=== PATIENT | male | born 1945 | race Hispanic/Latino ===

== ENCOUNTER 2017-11-27 18:28 | Emergency (ER) | payer MEDICARE ==
[~2017-11-27] VITALS: Ht 172.7 cm; Wt 110.7 kg
[~2017-11-27 18:28] MED LIST: ASPIR 8181 MG PO; BUPROPION XL150 MG PO; ESCITALOPRAM OX20 MG PO; GABAPENTIN400 MG PO; GLIPIZIDE10 MG PO; LOSARTAN POTAS100 MG PO; LOSARTAN-HCTZ1 EAC2 PO; LYRICA75 MG PO; METFORMIN HCL500 MG PO; PANTOPRAZOLE SO40 MG PO; SIMVASTATIN80 MG PO
[2017-11-27] MEDS ORDERED: SODIUM CHLORIDE 0.9% 1000ML 1,000 ML IV STA (18:54)
[2017-11-27] MEDS ORDERED: SODIUM CHLORIDE 0.9% 1000ML 1,000 ML IV SCH (20:30)
[2017-11-27] MEDS ORDERED: ZITHROMAX200 MG/5 M PO (21:18)
[2017-11-27 21:52] VITALS: BP 154/77
== END 2017-11-27 22:02 | disposition home or self-care (01) ==
LOC: FSED 18:28
DX: E86.0 Dehydration (principal); W18.39XA Other fall on same level, initial encounter; Y93.89 Activity, other specified; Y92.019 Unspecified place in single-family (private) house as the place of occurrence of the external cause; I10 Essential (primary) hypertension; E11.9 Type 2 diabetes mellitus without complications; S80.212A Abrasion, left knee, initial encounter
CPT/HCPCS: 70450; 73562; 80053; 81003; 82553; 83880; 84484; 85025; 99284; J7030

== ENCOUNTER 2018-05-24 17:59 | Observation (INO) | payer MEDICARE ==
[~2018-05-24] VITALS: Ht 154.4 cm; Wt 111.1 kg
[~2018-05-24 17:59] MED LIST changes: +ZITHROMAX200 MG/5 M PO
[2018-05-24] MEDS ORDERED: NITROGLYCERIN 2% OINT 1 GM PKT TOP ONE (18:30)
[2018-05-24] MEDS ORDERED: NITROGLYCERIN 0.4 MG SUBL SL NR (18:45)
[2018-05-24] MEDS ORDERED: ASPIRIN 81 MG CHEW TAB PO NR (18:45)
[2018-05-24] MEDS ORDERED: MORPHINE SULFATE INJ 4 MG/ML INJ IV PRN (19:15)
[2018-05-24] MEDS ORDERED: ONDANSETRON HCL INJ 2 MG/ML VIAL IV NR (19:15)
[2018-05-24] MEDS ORDERED: ENOXAPARIN SODIUM INJ 100 MG/ML SYR SC NR (19:30)
--- NOTE | 2018-05-24 19:49 | Diagnostic Imaging Report ---
EXAM: Single AP view of the chest. COMPARISON: None. INDICATION: Shortness of breath and chest pain, epigastric pain FINDINGS: Lines/tubes: None. Lungs: Patchy airspace opacities in both lung bases. Pleura: There is no pleural effusion or pneumothorax. Heart and mediastinum: The heart and the mediastinum are unremarkable. Bones and soft tissues: No acute bony abnormalities. IMPRESSION: Bibasilar airspace opacities may reflect atelectasis or developing pneumonia. Recommend follow-up chest radiograph in 4-6 weeks. Signed by: Dr. Moni Izaguirre M.D. on 05/24/2018 7:46 PM
[2018-05-24 20:00] VITALS: BP 115/59
[2018-05-24 20:50] VITALS: BP 115/59
[2018-05-24] MEDS ORDERED: SIMVASTATIN 80 MG TAB PO SCH (21:00)
[2018-05-24] MEDS ORDERED: METFORMIN HCL 500 MG TAB PO SCH (21:00)
[2018-05-24] MEDS: BUPROPION HCL 150 MG TABCR PO SCH (22:25)
[2018-05-24 23:26] LABS: CREATINE KINASE 33 IU/L (30-200)
[2018-05-25] VITALS: BP 98/55
[2018-05-25 00:21] LABS: CREATINE KINASE MB < 1.00 ng/mL (0-4.3)
[2018-05-25 04:00] VITALS: BP 82/45
[2018-05-25 07:17] LABS: CHOL/HDL RATIO 3.6 (3.9-4.7)
[2018-05-25 08:27] VITALS: BP 113/54
[2018-05-25] MEDS: FAMOTIDINE 20 MG TAB PO SCH ×2 (08:27→17:52)
[2018-05-25] MEDS: GABAPENTIN 400 MG CAP PO SCH ×2 (08:27→17:52)
[2018-05-25] MEDS: BUPROPION HCL 150 MG TABCR PO SCH (08:27)
[2018-05-25 08:41] VITALS: BP 113/54
[2018-05-25] MEDS ORDERED: ESCITALOPRAM OXALATE 40 MG PO SCH (09:00)
[2018-05-25 12:08] VITALS: BP 121/57
[2018-05-25 16:06] VITALS: BP 146/63
[2018-05-25] MEDS ORDERED: ENOXAPARIN SOD INJ 40 MG/0.4 ML SYR SC SCH (17:00)
[2018-05-25] MEDS ORDERED: HUMULIN 70100 UNIT/1 SQ ×2 (17:13)
[2018-05-25] MEDS ORDERED: ASPIR 8181 MG PO (17:29)
[2018-05-25] MEDS ORDERED: FAMOTIDINE20 MG PO (17:29)
[2018-05-25] MEDS ORDERED: DEXTROSE 50% SYRINGE 50 ML IV PRN (17:45)
[2018-05-25] MEDS ORDERED: HUMULIN 70/30 VIAL SQ SCH (17:45)
--- NOTE | 2018-05-25 18:01 | History and Physical ---
PRIMARY CARE PHYSICIAN: Dr. Joseph CHIEF COMPLAINT: Chest pain. HISTORY OF PRESENT ILLNESS: This is a 73-year-old woman with a history of diabetes mellitus, hypertension, and morbid obesity, now developing chest pain in left-sided chest, described as burning sensation lasting more than 30 minutes, so he came to the hospital. Denies any nausea, vomiting, shortness of breath, dizziness, diaphoresis. He had a stress test 1 year ago, which was negative. Patient was admitted for further evaluation and management. PAST MEDICAL HISTORY: Diabetes mellitus type 2, hypertension, hyperlipidemia, diabetic neuropathy. PAST SURGICAL HISTORY: Total knee replacement. ALLERGIES: PER ELECTRONIC MEDICAL RECORD. FAMILY/SOCIAL HISTORY: Patient is , does not smoke. MEDICATIONS: Per electronic medical record. REVIEW OF SYSTEMS: Denies any dizziness, chest pain at this time. Denies any fevers, chills, sweats, nausea, vomiting, diarrhea, headache, chest pain, vision change. PHYSICAL EXAM VITAL SIGNS: Reviewed. GENERAL: A tired-appearing man resting in bed. HEENT: Atraumatic. Pupils reactive to light. CARDIOVASCULAR: Normal S1 and S2. LUNGS: Moderate breath sounds. ABDOMEN: Soft, nontender, and nondistended. EXTREMITIES: No edema or calf tenderness. NEUROLOGICAL: Alert, oriented x3. Moving all extremities. SKIN: Dry. PSYCHIATRIC: Normal affect. LABS: Reviewed. MEDICATIONS: Reviewed. ASSESSMENT AND PLAN: This is a 73-year-old man. 1. Atypical chest pain. 2. Diabetes mellitus, type 2. 3. Hyperlipidemia. 4. Hypertension. 5. Diabetic neuropathy. PLAN 1. Cardiac enzymes are negative here. 2. was obtained last night. Will obtain a STAT repeat cardiac enzymes. If it is negative, he will likely be discharged home. His hemoglobin A1c is 7.4. His LDL is 45 and his triglyceride 134. 3. I have counseled patient on his caloric restriction, diet, exercise, and weight loss. 4. Chest x-ray did show some possible atelectasis at the bases. Patient clinically is asymptomatic. 5. Patient received Pepcid and Lovenox. 6. Disposition. Patient possibly can be discharged home today if repeat troponin is negative. He will need to follow up with Dr. Spencer outpatient for a stress test and an echocardiogram. Job#: [id number] [id number]
[2018-05-26] MEDS ORDERED: HUMULIN 70/30 VIAL SQ SCH (07:30)
[2018-05-26] MEDS ORDERED: ESCITALOPRAM OXALATE 10 MG TAB PO SCH (09:00)
== END 2018-05-25 19:41 | disposition home or self-care (01) ==
LOC: FSED 17:59 → INTOOBSV 18:25 → ERHOLD 18:25 → MED/SURG 20:05
PROVIDERS: ADMIT Internal Medicine; ATTEND Internal Medicine
DX: R07.89 Other chest pain (principal); E11.42 Type 2 diabetes mellitus with diabetic polyneuropathy; I10 Essential (primary) hypertension; E66.01 Morbid (severe) obesity due to excess calories; E78.5 Hyperlipidemia, unspecified; Z68.42 Body mass index [BMI] 45.0-49.9, adult; Z91.048 Other nonmedicinal substance allergy status
CPT/HCPCS: 36415 ×2; 71045; 80053; 80061; 82550; 82553; 82948 ×2; 83036; 84484 ×2; 85025; 93005 ×2; 99284; G0378 ×2; J1650

== ENCOUNTER 2020-08-16 15:30 | Inpatient (IN) | payer MEDICARE ==
[~2020-08-16] VITALS: Ht 154.4 cm; Wt 96.3 kg
[~2020-08-16 15:30] MED LIST changes: +FAMOTIDINE20 MG PO; +HUMULIN 70100 UNIT/1 SQ
[2020-08-16] MEDS ORDERED: DEXAMETHASONE SOD PHOS 10 MG/1 ML VIAL IV STA (15:37)
[2020-08-16] MEDS ORDERED: ASPIRIN 81 MG CHEW TAB PO ONE ×2 (15:45)
[2020-08-16 15:53] LABS: BASOPHILS # (AUTO) 0.1 (0.0-0.1); BASOPHILS % 0.5 % (0.0-1.0); EOSINOPHILS # (AUTO) 0.4 (0.0-0.4); EOSINOPHILS % 2.9 % (0.0-6.0); HEMATOCRIT 42.3 % (38.2-49.6); LYMPHOCYTES # (AUTO) 1.1 (1.0-3.2); LYMPHOCYTES % 8.8 % (18.0-39.1); MEAN CORPUSCULAR HEMOGLOBIN 30.4 pg (28-32); MEAN CORPUSCULAR HGB CONC 33.1 g/dL (31-35); MEAN CORPUSCULAR VOLUME 91.8 fL (81-99); MONOCYTES % 8.1 % (4.4-11.3); NEUTROPHILS # (AUTO) 9.6 (2.1-6.9); NEUTROPHILS % 76.4 % (38.7-80.0); PLATELET COUNT 530 x10e3/uL (140-360); RED BLOOD COUNT 4.61 x10e6/uL (4.3-5.7); RED CELL DISTRIBUTION WIDTH 12.3 % (11.7-14.4)
[2020-08-16] MEDS ORDERED: AZITHROMYCIN 500MG/NS 250 ML 250 ML IV ONE (16:00)
[2020-08-16 16:17] LABS: ALBUMIN 2.5 g/dL (3.5-5.0); ALBUMIN/GLOBULIN RATIO 0.4 (0.8-2.0); ANION GAP 17.5 mmol/L (8-16); CALCIUM 8.6 mg/dL (8.4-10.2); CREATININE, SERUM 1.18 mg/dL (0.72-1.25); POTASSIUM 4.5 mmol/L (3.5-5.1)
[2020-08-16 16:25] LABS: CREATINE KINASE MB 0.7 ng/mL (0-5.0)
[2020-08-16] MEDS ORDERED: REMDESIVIR 200MG/NS 100ML 200 MG in SODIUM CHLORIDE 0.9% 100 ML 100 ML IV ONE (19:30)
[2020-08-16] MEDS ORDERED: ONDANSETRON HCL INJ 2MG/ML 2ML 2 MG/ML VIAL IV PRN (19:30)
[2020-08-16] MEDS ORDERED: LACTATED RINGER'S 1,000 ML INJ ONE (19:30)
[2020-08-16] MEDS ORDERED: ACETAMINOPHEN 325 MG TAB PO PRN (19:30)
[2020-08-16] MEDS ORDERED: DEXTROSE 50% SYRINGE 50 ML IV PRN (19:45)
[2020-08-16] MEDS: INSULIN GLARGINE 100 UNITS/ML VIAL SQ SCH (21:27)
[2020-08-16] MEDS: INSULIN REGULAR, HUMAN 100 UNIT/1 ML 3ML VIAL SQ SCH (21:27)
[2020-08-16] MEDS: ENOXAPARIN SOD INJ 40 MG/0.4 ML SYR SC SCH (21:36)
[2020-08-16] MEDS: TEMAZEPAM 7.5 MG CAP PO PRN (21:36)
[2020-08-16 21:37] VITALS: BP 151/90
[2020-08-16 22:08] VITALS: BP 143/77
[2020-08-16 22:37] VITALS: BP 143/77
[2020-08-16 22:49] LABS: CREATINE KINASE MB 0.7 ng/mL (0-5.0)
[2020-08-16 23:00] VITALS: BP 139/74
[2020-08-16 23:18] VITALS: BP 139/74
[2020-08-17] VITALS (23 sets, daily range): BP systolic 74–152; BP diastolic 54–86
[2020-08-17] MEDS: INSULIN REGULAR, HUMAN 100 UNIT/1 ML 3ML VIAL SQ SCH ×4 (07:38→20:12)
[2020-08-17 08:36] LABS: BASOPHILS % 0.2 % (0.0-1.0); HEMATOCRIT 41.8 % (38.2-49.6); HEMOGLOBIN 13.7 g/dL (14.0-18.0); LYMPHOCYTES # (AUTO) 0.6 (1.0-3.2); LYMPHOCYTES % 6.6 % (18.0-39.1); MEAN CORPUSCULAR HEMOGLOBIN 30.4 pg (28-32); MEAN CORPUSCULAR HGB CONC 32.8 g/dL (31-35); MEAN CORPUSCULAR VOLUME 92.9 fL (81-99); MONOCYTES # (AUTO) 0.3 (0.2-0.8); MONOCYTES % 3.5 % (4.4-11.3); NEUTROPHILS # (AUTO) 7.6 (2.1-6.9); NEUTROPHILS % 86.8 % (38.7-80.0); PLATELET COUNT 419 x10e3/uL (140-360); RED CELL DISTRIBUTION WIDTH 12.2 % (11.7-14.4)
[2020-08-17] MEDS ORDERED: CEFTRIAXONE SOD 1 GM/50 ML BAG IV SCH (09:00)
[2020-08-17] MEDS: ENOXAPARIN SOD INJ 40 MG/0.4 ML SYR SC SCH ×2 (09:02→19:54)
[2020-08-17] MEDS: ZINC SULFATE 220 MG CAP PO SCH (09:02)
[2020-08-17] MEDS: DEXAMETHASONE SOD PHOS 10 MG/1 ML VIAL IV SCH (09:02)
[2020-08-17 09:06] LABS: ALANINE AMINOTRANSFERASE 149 IU/L (0-55); ALBUMIN 2.2 g/dL (3.5-5.0); ALBUMIN/GLOBULIN RATIO 0.4 (0.8-2.0); ALKALINE PHOSPHATASE 74 IU/L (40-150); ANION GAP 15.9 mmol/L (8-16); BLOOD UREA NITROGEN 23 mg/dL (7-26); BUN/CREATININE RATIO 23 (6-25); CALCIUM 8.5 mg/dL (8.4-10.2); CARBON DIOXIDE 21 mmol/L (22-29); CHLORIDE 105 mmol/L (98-107); CREATININE, SERUM 1.01 mg/dL (0.72-1.25); EST GLOMERULAR FILTRATION RATE > 60 ML/MIN (60-); GLUCOSE 256 mg/dL (74-118); POTASSIUM 4.9 mmol/L (3.5-5.1); SODIUM 137 mmol/L (136-145)
[2020-08-17] MEDS: CEFTRIAXONE SOD 1 GM in SODIUM CHLORIDE 0.9% 50ML 50 ML IV SCH (09:14)
[2020-08-17 09:25] LABS: CREATINE KINASE 67 IU/L (30-200)
[2020-08-17] MEDS: AZITHROMYCIN 500MG/NS 250 ML 250 ML IV SCH (16:36)
[2020-08-17] MEDS: RISPERIDONE 0.5 MG TAB PO PRN (19:54)
[2020-08-17] MEDS: REMDESIVIR 100MG/NS 100ML 100 MG IV SCH (19:54)
[2020-08-17] MEDS: TEMAZEPAM 7.5 MG CAP PO PRN (19:54)
[2020-08-17] MEDS: INSULIN GLARGINE 100 UNITS/ML VIAL SQ SCH (20:12)
[2020-08-18] VITALS (18 sets, daily range): BP systolic 117–145; BP diastolic 55–84
[2020-08-18 05:32] LABS: BASOPHILS % 0.2 % (0.0-1.0); HEMATOCRIT 39.3 % (38.2-49.6); HEMOGLOBIN 12.9 g/dL (14.0-18.0); LYMPHOCYTES # (AUTO) 0.8 (1.0-3.2); LYMPHOCYTES % 5.6 % (18.0-39.1); MEAN CORPUSCULAR HEMOGLOBIN 30.3 pg (28-32); MEAN CORPUSCULAR HGB CONC 32.8 g/dL (31-35); MEAN CORPUSCULAR VOLUME 92.3 fL (81-99); MONOCYTES # (AUTO) 0.9 (0.2-0.8); MONOCYTES % 5.9 % (4.4-11.3); NEUTROPHILS # (AUTO) 12.8 (2.1-6.9); NEUTROPHILS % 85.8 % (38.7-80.0); PLATELET COUNT 474 x10e3/uL (140-360); RED BLOOD COUNT 4.26 x10e6/uL (4.3-5.7); RED CELL DISTRIBUTION WIDTH 11.9 % (11.7-14.4)
[2020-08-18 05:52] LABS: ALANINE AMINOTRANSFERASE 126 IU/L (0-55); ALBUMIN 2.2 g/dL (3.5-5.0); ALBUMIN/GLOBULIN RATIO 0.4 (0.8-2.0); ALKALINE PHOSPHATASE 67 IU/L (40-150); ANION GAP 14.4 mmol/L (8-16); BLOOD UREA NITROGEN 25 mg/dL (7-26); BUN/CREATININE RATIO 28 (6-25); CALCIUM 8.3 mg/dL (8.4-10.2); CARBON DIOXIDE 21 mmol/L (22-29); CHLORIDE 106 mmol/L (98-107); EST GLOMERULAR FILTRATION RATE > 60 ML/MIN (60-); GLUCOSE 207 mg/dL (74-118); POTASSIUM 4.4 mmol/L (3.5-5.1); SODIUM 137 mmol/L (136-145)
[2020-08-18] MEDS ORDERED: ALPRAZOLAM 0.5 MG TAB PO SCH (07:00)
[2020-08-18] MEDS: INSULIN REGULAR, HUMAN 100 UNIT/1 ML 3ML VIAL SQ SCH ×4 (07:30→20:21)
[2020-08-18] MEDS ORDERED: ALPRAZOLAM 0.5 MG TAB PO PRN (08:15)
[2020-08-18 08:27] LABS: CHOL/HDL RATIO 5.2 (3.9-4.7)
[2020-08-18] MEDS: ENOXAPARIN SOD INJ 40 MG/0.4 ML SYR SC SCH ×2 (08:53→20:20)
[2020-08-18] MEDS: ASCORBIC ACID 500 MG TAB PO SCH ×2 (08:53→17:05)
[2020-08-18] MEDS: BENZONATATE 100 MG CAP PO SCH ×3 (08:53→20:20)
[2020-08-18] MEDS: ZINC SULFATE 220 MG CAP PO SCH (08:53)
[2020-08-18] MEDS: DEXAMETHASONE SOD PHOS 10 MG/1 ML VIAL IV SCH (08:53)
[2020-08-18] MEDS: CEFTRIAXONE SOD 1 GM in SODIUM CHLORIDE 0.9% 50ML 50 ML IV SCH (08:53)
[2020-08-18] MEDS: ESCITALOPRAM OXALATE 10 MG TAB PO SCH (08:53)
[2020-08-18] MEDS: BUPROPION HCL 150 MG TABCR PO SCH ×2 (08:53→17:05)
[2020-08-18] MEDS: CHOLECALCIFEROL 1,000 UNIT TAB PO SCH (08:53)
[2020-08-18] MEDS ORDERED: LORATADINE 10 MG TAB PO SCH (09:00)
[2020-08-18] MEDS ORDERED: GABAPENTIN 400 MG CAP PO SCH (09:00)
[2020-08-18] MEDS: AZITHROMYCIN 500MG/NS 250 ML 250 ML IV SCH (17:04)
[2020-08-18] MEDS: FAMOTIDINE 20 MG TAB PO SCH (17:05)
[2020-08-18] MEDS: TAMSULOSIN HCL 0.4 MG CAP PO SCH (17:25)
[2020-08-18] MEDS ORDERED: SODIUM CHLORIDE 0.9% 250ML 250 ML ONE (19:59)
[2020-08-18] MEDS: INSULIN GLARGINE 100 UNITS/ML VIAL SQ SCH (20:20)
[2020-08-18] MEDS: REMDESIVIR 100MG/NS 100ML 100 MG IV SCH (20:20)
[2020-08-18] MEDS ORDERED: MONTELUKAST SODIUM 10 MG TAB PO SCH (21:00)
[2020-08-19] VITALS (31 sets, daily range): BP systolic 89–136; BP diastolic 63–99
[2020-08-19] MEDS: GUAIFENESIN/DEXTROMETHORPHAN LIQD 5 ML UDC NG PRN (02:31)
[2020-08-19] MEDS: LORAZEPAM INJ 2 MG/ML VIAL IV PRN ×2 (02:57→06:12)
[2020-08-19 05:13] LABS: BASOPHILS % 0.1 % (0.0-1.0); HEMATOCRIT 38.5 % (38.2-49.6); HEMOGLOBIN 12.6 g/dL (14.0-18.0); LYMPHOCYTES # (AUTO) 0.8 (1.0-3.2); LYMPHOCYTES % 6.9 % (18.0-39.1); MEAN CORPUSCULAR HEMOGLOBIN 30.7 pg (28-32); MEAN CORPUSCULAR HGB CONC 32.7 g/dL (31-35); MEAN CORPUSCULAR VOLUME 93.7 fL (81-99); MONOCYTES # (AUTO) 0.9 (0.2-0.8); MONOCYTES % 8.1 % (4.4-11.3); NEUTROPHILS # (AUTO) 9.5 (2.1-6.9); NEUTROPHILS % 83.1 % (38.7-80.0); PLATELET COUNT 475 x10e3/uL (140-360); RED BLOOD COUNT 4.11 x10e6/uL (4.3-5.7); RED CELL DISTRIBUTION WIDTH 11.9 % (11.7-14.4)
[2020-08-19 05:28] LABS: ALANINE AMINOTRANSFERASE 95 IU/L (0-55); ALBUMIN 2.2 g/dL (3.5-5.0); ALBUMIN/GLOBULIN RATIO 0.5 (0.8-2.0); ALKALINE PHOSPHATASE 62 IU/L (40-150); ANION GAP 13.5 mmol/L (8-16); BLOOD UREA NITROGEN 29 mg/dL (7-26); BUN/CREATININE RATIO 30 (6-25); CALCIUM 8.2 mg/dL (8.4-10.2); CARBON DIOXIDE 22 mmol/L (22-29); CHLORIDE 104 mmol/L (98-107); CREATININE, SERUM 0.97 mg/dL (0.72-1.25); EST GLOMERULAR FILTRATION RATE > 60 ML/MIN (60-); GLUCOSE 224 mg/dL (74-118); POTASSIUM 4.5 mmol/L (3.5-5.1); SODIUM 135 mmol/L (136-145)
[2020-08-19] MEDS ORDERED: DEXMEDETOMIDINE HCL 200 MCG in SODIUM CHLORIDE 0.9% 50ML 48 ML IV SCH (06:45)
[2020-08-19] MEDS ORDERED: DEXMEDETOMIDINE 200MCG/NS 50ML 50 ML IV ONE (06:55)
[2020-08-19] MEDS: CEFTRIAXONE SOD 1 GM in SODIUM CHLORIDE 0.9% 50ML 50 ML IV SCH (08:21)
[2020-08-19] MEDS: ENOXAPARIN SOD INJ 40 MG/0.4 ML SYR SC SCH ×2 (08:21→22:10)
[2020-08-19] MEDS: ASCORBIC ACID 500 MG TAB PO SCH ×2 (08:21→16:22)
[2020-08-19] MEDS: CHOLECALCIFEROL 1,000 UNIT TAB PO SCH (08:21)
[2020-08-19] MEDS: ZINC SULFATE 220 MG CAP PO SCH (08:21)
[2020-08-19] MEDS: FAMOTIDINE 20 MG TAB PO SCH ×2 (08:21→16:22)
[2020-08-19] MEDS: BUPROPION HCL 150 MG TABCR PO SCH ×2 (08:21→16:22)
[2020-08-19] MEDS: BENZONATATE 100 MG CAP PO SCH ×3 (08:21→21:00)
[2020-08-19] MEDS: DEXAMETHASONE SOD PHOS 10 MG/1 ML VIAL IV SCH (08:21)
[2020-08-19] MEDS: ESCITALOPRAM OXALATE 10 MG TAB PO SCH (08:22)
[2020-08-19] MEDS: INSULIN REGULAR, HUMAN 100 UNIT/1 ML 3ML VIAL SQ SCH ×4 (08:35→22:10)
[2020-08-19 09:07] LABS: ABG PCO2 41 mmHg (35-45); ABG PH 7.39 (7.35-7.45)
[2020-08-19 09:08] LABS: ABG HCO3 25 mmol/L (22-26); ABG PO2 82 mmHg (80-105); ABG TCO2 26
[2020-08-19] MEDS ORDERED: DEXMEDETOMIDINE 200MCG/NS 50ML 50 ML IV SCH (13:45)
[2020-08-19] MEDS ORDERED: DEXMEDETOMIDINE 200MCG/NS 50ML 50 ML IV PRN (14:45)
[2020-08-19] MEDS: TAMSULOSIN HCL 0.4 MG CAP PO SCH (16:22)
[2020-08-19] MEDS: AZITHROMYCIN 500MG/NS 250 ML 250 ML IV SCH (16:22)
[2020-08-19] MEDS: REMDESIVIR 100MG/NS 100ML 100 MG IV SCH (19:39)
[2020-08-19] MEDS ORDERED: INSULIN GLARGINE 100 UNITS/ML VIAL SQ SCH (21:00)
[2020-08-20] VITALS (25 sets, daily range): BP systolic 104–147; BP diastolic 60–82
[2020-08-20 05:06] LABS: BASOPHILS % 0.1 % (0.0-1.0); HEMATOCRIT 40.8 % (38.2-49.6); HEMOGLOBIN 13.3 g/dL (14.0-18.0); LYMPHOCYTES # (AUTO) 0.6 (1.0-3.2); LYMPHOCYTES % 7.4 % (18.0-39.1); MEAN CORPUSCULAR HEMOGLOBIN 30.4 pg (28-32); MEAN CORPUSCULAR HGB CONC 32.6 g/dL (31-35); MEAN CORPUSCULAR VOLUME 93.2 fL (81-99); MONOCYTES # (AUTO) 0.8 (0.2-0.8); MONOCYTES % 9.2 % (4.4-11.3); NEUTROPHILS # (AUTO) 7.1 (2.1-6.9); NEUTROPHILS % 81.9 % (38.7-80.0); PLATELET COUNT 441 x10e3/uL (140-360); RED BLOOD COUNT 4.38 x10e6/uL (4.3-5.7); RED CELL DISTRIBUTION WIDTH 11.9 % (11.7-14.4)
[2020-08-20 05:39] LABS: ALANINE AMINOTRANSFERASE 87 IU/L (0-55); ALBUMIN 2.3 g/dL (3.5-5.0); ALBUMIN/GLOBULIN RATIO 0.5 (0.8-2.0); ALKALINE PHOSPHATASE 61 IU/L (40-150); ANION GAP 13.1 mmol/L (8-16); BLOOD UREA NITROGEN 32 mg/dL (7-26); BUN/CREATININE RATIO 32 (6-25); CALCIUM 8.2 mg/dL (8.4-10.2); CARBON DIOXIDE 23 mmol/L (22-29); CHLORIDE 105 mmol/L (98-107); EST GLOMERULAR FILTRATION RATE > 60 ML/MIN (60-); GLUCOSE 276 mg/dL (74-118); POTASSIUM 5.1 mmol/L (3.5-5.1); SODIUM 136 mmol/L (136-145)
[2020-08-20] MEDS: INSULIN REGULAR, HUMAN 100 UNIT/1 ML 3ML VIAL SQ SCH ×4 (08:46→20:49)
[2020-08-20] MEDS: FAMOTIDINE 20 MG TAB PO SCH ×2 (09:20→16:28)
[2020-08-20] MEDS: DEXAMETHASONE SOD PHOS 10 MG/1 ML VIAL IV SCH (09:20)
[2020-08-20] MEDS: ZINC SULFATE 220 MG CAP PO SCH (09:20)
[2020-08-20] MEDS: ASCORBIC ACID 500 MG TAB PO SCH ×2 (09:20→17:20)
[2020-08-20] MEDS: ESCITALOPRAM OXALATE 10 MG TAB PO SCH (09:20)
[2020-08-20] MEDS: ENOXAPARIN SOD INJ 40 MG/0.4 ML SYR SC SCH ×2 (09:20→20:43)
[2020-08-20] MEDS: CEFTRIAXONE SOD 1 GM in SODIUM CHLORIDE 0.9% 50ML 50 ML IV SCH (09:20)
[2020-08-20] MEDS: BENZONATATE 100 MG CAP PO SCH ×3 (09:20→20:43)
[2020-08-20] MEDS: CHOLECALCIFEROL 1,000 UNIT TAB PO SCH (09:20)
[2020-08-20] MEDS: BUPROPION HCL 150 MG TABCR PO SCH ×2 (09:20→17:20)
[2020-08-20] MEDS ORDERED: SODIUM CHLORIDE 0.45% 1,000 ML IV ONE (10:15)
[2020-08-20] MEDS: AZITHROMYCIN 500MG/NS 250 ML 250 ML IV SCH (15:42)
[2020-08-20] MEDS: TAMSULOSIN HCL 0.4 MG CAP PO SCH (17:44)
[2020-08-20] MEDS: REMDESIVIR 100MG/NS 100ML 100 MG IV SCH (19:37)
[2020-08-20] MEDS: INSULIN GLARGINE 100 UNITS/ML VIAL SQ SCH (20:49)
[2020-08-21] VITALS (24 sets, daily range): BP systolic 109–168; BP diastolic 52–89
[2020-08-21 05:50] LABS: BASOPHILS % 0.1 % (0.0-1.0); EOSINOPHILS % 0.1 % (0.0-6.0); HEMATOCRIT 39.6 % (38.2-49.6); HEMOGLOBIN 13.5 g/dL (14.0-18.0); LYMPHOCYTES # (AUTO) 1.1 (1.0-3.2); LYMPHOCYTES % 11.7 % (18.0-39.1); MEAN CORPUSCULAR HEMOGLOBIN 31.7 pg (28-32); MEAN CORPUSCULAR HGB CONC 34.1 g/dL (31-35); MONOCYTES # (AUTO) 1.1 (0.2-0.8); MONOCYTES % 10.9 % (4.4-11.3); NEUTROPHILS # (AUTO) 7.3 (2.1-6.9); NEUTROPHILS % 75.9 % (38.7-80.0); PLATELET COUNT 384 x10e3/uL (140-360); RED BLOOD COUNT 4.26 x10e6/uL (4.3-5.7); RED CELL DISTRIBUTION WIDTH 11.9 % (11.7-14.4)
[2020-08-21 06:41] LABS: ALANINE AMINOTRANSFERASE 80 IU/L (0-55); ALBUMIN 2.5 g/dL (3.5-5.0); ALBUMIN/GLOBULIN RATIO 0.6 (0.8-2.0); ALKALINE PHOSPHATASE 63 IU/L (40-150); ANION GAP 12.3 mmol/L (8-16); BLOOD UREA NITROGEN 28 mg/dL (7-26); BUN/CREATININE RATIO 31 (6-25); CALCIUM 8.1 mg/dL (8.4-10.2); CARBON DIOXIDE 24 mmol/L (22-29); CHLORIDE 103 mmol/L (98-107); EST GLOMERULAR FILTRATION RATE > 60 ML/MIN (60-); GLUCOSE 155 mg/dL (74-118); POTASSIUM 4.3 mmol/L (3.5-5.1); SODIUM 135 mmol/L (136-145)
[2020-08-21] MEDS: FAMOTIDINE 20 MG TAB PO SCH ×2 (07:50→16:55)
[2020-08-21] MEDS: INSULIN REGULAR, HUMAN 100 UNIT/1 ML 3ML VIAL SQ SCH ×4 (07:54→21:15)
[2020-08-21] MEDS: BUPROPION HCL 150 MG TABCR PO SCH ×2 (08:55→17:27)
[2020-08-21] MEDS: BENZONATATE 100 MG CAP PO SCH ×3 (08:55→20:32)
[2020-08-21] MEDS: ASCORBIC ACID 500 MG TAB PO SCH ×2 (08:55→17:27)
[2020-08-21] MEDS: ESCITALOPRAM OXALATE 10 MG TAB PO SCH (08:55)
[2020-08-21] MEDS: CEFTRIAXONE SOD 1 GM in SODIUM CHLORIDE 0.9% 50ML 50 ML IV SCH (08:55)
[2020-08-21] MEDS: CHOLECALCIFEROL 1,000 UNIT TAB PO SCH (08:55)
[2020-08-21] MEDS: DEXAMETHASONE SOD PHOS 10 MG/1 ML VIAL IV SCH (08:55)
[2020-08-21] MEDS: ENOXAPARIN SOD INJ 40 MG/0.4 ML SYR SC SCH ×2 (08:55→20:32)
[2020-08-21] MEDS: ZINC SULFATE 220 MG CAP PO SCH (08:55)
[2020-08-21] MEDS: AZITHROMYCIN 500MG/NS 250 ML 250 ML IV SCH (15:50)
[2020-08-21] MEDS: TAMSULOSIN HCL 0.4 MG CAP PO SCH (17:27)
[2020-08-21] MEDS: INSULIN GLARGINE 100 UNITS/ML VIAL SQ SCH (21:16)
[2020-08-21] MEDS: TEMAZEPAM 15 MG CAP PO PRN (23:30)
[2020-08-22] VITALS (13 sets, daily range): BP systolic 116–151; BP diastolic 71–87
[2020-08-22] MEDS: INSULIN REGULAR, HUMAN 100 UNIT/1 ML 3ML VIAL SQ SCH ×4 (07:30→20:39)
[2020-08-22] MEDS: FAMOTIDINE 20 MG TAB PO SCH ×2 (09:05→16:00)
[2020-08-22] MEDS: ESCITALOPRAM OXALATE 10 MG TAB PO SCH (09:05)
[2020-08-22] MEDS: DEXAMETHASONE SOD PHOS 10 MG/1 ML VIAL IV SCH (09:05)
[2020-08-22] MEDS: BENZONATATE 100 MG CAP PO SCH ×3 (09:06→20:33)
[2020-08-22] MEDS: CHOLECALCIFEROL 1,000 UNIT TAB PO SCH (09:06)
[2020-08-22] MEDS: ASCORBIC ACID 500 MG TAB PO SCH ×2 (09:06→16:00)
[2020-08-22] MEDS: ENOXAPARIN SOD INJ 40 MG/0.4 ML SYR SC SCH ×2 (09:06→20:32)
[2020-08-22] MEDS: ZINC SULFATE 220 MG CAP PO SCH (09:06)
[2020-08-22] MEDS: BUPROPION HCL 150 MG TABCR PO SCH ×2 (09:06→17:13)
[2020-08-22] MEDS: CEFTRIAXONE SOD 1 GM in SODIUM CHLORIDE 0.9% 50ML 50 ML IV SCH (09:06)
[2020-08-22] MEDS: AZITHROMYCIN 500MG/NS 250 ML 250 ML IV SCH (16:00)
[2020-08-22] MEDS: TAMSULOSIN HCL 0.4 MG CAP PO SCH (17:13)
[2020-08-22] MEDS: RISPERIDONE 0.5 MG TAB PO PRN (20:37)
[2020-08-22] MEDS: GUAIFENESIN/DEXTROMETHORPHAN LIQD 5 ML UDC NG PRN (20:37)
[2020-08-22] MEDS: TEMAZEPAM 15 MG CAP PO PRN (20:37)
[2020-08-22] MEDS: INSULIN GLARGINE 100 UNITS/ML VIAL SQ SCH (20:38)
[2020-08-23] VITALS (8 sets, daily range): BP systolic 103–123; BP diastolic 60–79
[2020-08-23] MEDS: FAMOTIDINE 20 MG TAB PO SCH ×2 (08:06→16:02)
[2020-08-23] MEDS: CHOLECALCIFEROL 1,000 UNIT TAB PO SCH (08:07)
[2020-08-23] MEDS: ESCITALOPRAM OXALATE 10 MG TAB PO SCH (08:07)
[2020-08-23] MEDS: ASCORBIC ACID 500 MG TAB PO SCH ×2 (08:07→16:03)
[2020-08-23] MEDS: ZINC SULFATE 220 MG CAP PO SCH (08:07)
[2020-08-23] MEDS: CEFTRIAXONE SOD 1 GM in SODIUM CHLORIDE 0.9% 50ML 50 ML IV SCH (08:07)
[2020-08-23] MEDS: BUPROPION HCL 150 MG TABCR PO SCH ×2 (08:07→16:03)
[2020-08-23] MEDS: ENOXAPARIN SOD INJ 40 MG/0.4 ML SYR SC SCH (08:07)
[2020-08-23] MEDS: DEXAMETHASONE SOD PHOS 10 MG/1 ML VIAL IV SCH (08:07)
[2020-08-23] MEDS: INSULIN REGULAR, HUMAN 100 UNIT/1 ML 3ML VIAL SQ SCH ×4 (08:23→21:00)
[2020-08-23] MEDS ORDERED: SODIUM CHLORIDE 0.9% 250ML 250 ML ONE (08:28)
[2020-08-23] MEDS: BENZONATATE 100 MG CAP PO SCH ×3 (09:00→21:00)
[2020-08-23 09:14] LABS: BASOPHILS % 0.2 % (0.0-1.0); EOSINOPHILS # (AUTO) 0.1 (0.0-0.4); EOSINOPHILS % 1.6 % (0.0-6.0); HEMATOCRIT 43.4 % (38.2-49.6); HEMOGLOBIN 14.4 g/dL (14.0-18.0); LYMPHOCYTES # (AUTO) 1.3 (1.0-3.2); MEAN CORPUSCULAR HEMOGLOBIN 30.1 pg (28-32); MEAN CORPUSCULAR HGB CONC 33.2 g/dL (31-35); MEAN CORPUSCULAR VOLUME 90.8 fL (81-99); MONOCYTES % 11.3 % (4.4-11.3); NEUTROPHILS # (AUTO) 6.4 (2.1-6.9); NEUTROPHILS % 71.2 % (38.7-80.0); PLATELET COUNT 326 x10e3/uL (140-360); RED BLOOD COUNT 4.78 x10e6/uL (4.3-5.7); RED CELL DISTRIBUTION WIDTH 12.1 % (11.7-14.4)
[2020-08-23 09:46] LABS: ALANINE AMINOTRANSFERASE 51 IU/L (0-55); ALBUMIN 2.6 g/dL (3.5-5.0); ALBUMIN/GLOBULIN RATIO 0.7 (0.8-2.0); ALKALINE PHOSPHATASE 70 IU/L (40-150); ANION GAP 11.3 mmol/L (8-16); BLOOD UREA NITROGEN 25 mg/dL (7-26); BUN/CREATININE RATIO 25 (6-25); CALCIUM 8.4 mg/dL (8.4-10.2); CARBON DIOXIDE 25 mmol/L (22-29); CHLORIDE 104 mmol/L (98-107); CREATININE, SERUM 1.01 mg/dL (0.72-1.25); EST GLOMERULAR FILTRATION RATE > 60 ML/MIN (60-); GLUCOSE 181 mg/dL (74-118); POTASSIUM 4.3 mmol/L (3.5-5.1); SODIUM 136 mmol/L (136-145)
[2020-08-23] MEDS: AZITHROMYCIN 500MG/NS 250 ML 250 ML IV SCH (16:20)
[2020-08-23] MEDS: TAMSULOSIN HCL 0.4 MG CAP PO SCH (17:09)
[2020-08-23] MEDS: TEMAZEPAM 15 MG CAP PO PRN (21:00)
[2020-08-23] MEDS: GUAIFENESIN/DEXTROMETHORPHAN LIQD 5 ML UDC NG PRN (21:00)
[2020-08-23] MEDS: INSULIN GLARGINE 100 UNITS/ML VIAL SQ SCH (21:00)
[2020-08-24 05:00] VITALS: BP 124/75
[2020-08-24] MEDS: INSULIN REGULAR, HUMAN 100 UNIT/1 ML 3ML VIAL SQ SCH ×2 (07:30→12:32)
[2020-08-24 07:44] VITALS: BP 107/67
[2020-08-24 07:51] VITALS: BP 107/67
[2020-08-24] MEDS: ASCORBIC ACID 500 MG TAB PO SCH (08:12)
[2020-08-24] MEDS: CHOLECALCIFEROL 1,000 UNIT TAB PO SCH (08:12)
[2020-08-24] MEDS: BUPROPION HCL 150 MG TABCR PO SCH (08:12)
[2020-08-24] MEDS: DEXAMETHASONE SOD PHOS 10 MG/1 ML VIAL IV SCH (08:12)
[2020-08-24] MEDS: CEFTRIAXONE SOD 1 GM in SODIUM CHLORIDE 0.9% 50ML 50 ML IV SCH (08:12)
[2020-08-24] MEDS: BENZONATATE 100 MG CAP PO SCH (08:12)
[2020-08-24] MEDS: ESCITALOPRAM OXALATE 10 MG TAB PO SCH (08:12)
[2020-08-24] MEDS: FAMOTIDINE 20 MG TAB PO SCH (08:12)
[2020-08-24] MEDS: ZINC SULFATE 220 MG CAP PO SCH (08:12)
[2020-08-24] MEDS: DOCUSATE SODIUM 100 MG CAP PO SCH ×2 (08:54→09:00)
[2020-08-24] MEDS: SENNOSIDES 8.6 MG TAB PO SCH ×2 (08:54→09:00)
[2020-08-24 11:45] VITALS: BP 119/72
[2020-08-24] MEDS ORDERED: PREDNISONE20 MG PO (12:52)
[2020-08-24] MEDS ORDERED: TESSALON PERLE100 MG PO (12:52)
[2020-08-24] MEDS ORDERED: ROBITUSSIN COU118 M4 PO (12:52)
[2020-08-24] MEDS ORDERED: ASCORBIC ACID500 MG PO (12:52)
[2020-08-24] MEDS ORDERED: ZITHROMAX500 MG PO (12:52)
[2020-08-24] MEDS ORDERED: ZINC SULFATE50 MG PO (12:52)
[2020-08-24] MEDS ORDERED: FLOMAX0.4 MG PO (12:52)
[2020-08-24] MEDS ORDERED: RISPERDAL0.5 MG PO (12:52)
[2020-08-24] MEDS ORDERED: KEFLEX125 MG/5 M PO (12:52)
[2020-08-24] MEDS ORDERED: ONDANSETRON HCL 4 MG ORAL DISINTEGRATING TAB PO PRN (13:30)
== END 2020-08-24 14:08 | disposition home or self-care (01) | DRG 177 ==
LOC: ER 15:35 → ERHOLD 16:55 → ICU 21:13 → IMCU 08-22 15:14
PROVIDERS: ADMIT Internal Medicine; ATTEND Internal Medicine
PROC: 8E0ZXY6 Isolation (ICD-10-PCS; 2020-08-16)
PROC: 3E0433Z Introduction of Anti-inflammatory into Central Vein, Percutaneous Approach (ICD-10-PCS; 2020-08-16)
PROC: XW043E5 Introduction of Remdesivir Anti-infective into Central Vein, Percutaneous Approach, New Technology Group 5 (ICD-10-PCS; 2020-08-16)
PROC: 02HV33Z Insertion of Infusion Device into Superior Vena Cava, Percutaneous Approach (ICD-10-PCS; principal; 2020-08-18)
PROC: B548ZZA Ultrasonography of Superior Vena Cava, Guidance (ICD-10-PCS; 2020-08-18)
DX: U07.1 COVID-19 (principal); J12.82 Pneumonia due to coronavirus disease 2019; J96.01 Acute respiratory failure with hypoxia; G93.41 Metabolic encephalopathy; N17.9 Acute kidney failure, unspecified; Z68.42 Body mass index [BMI] 45.0-49.9, adult; I10 Essential (primary) hypertension; I25.10 Atherosclerotic heart disease of native coronary artery without angina pectoris; E11.42 Type 2 diabetes mellitus with diabetic polyneuropathy; E78.5 Hyperlipidemia, unspecified; Z96.651 Presence of right artificial knee joint; Z79.4 Long term (current) use of insulin; R33.9 Retention of urine, unspecified; E83.51 Hypocalcemia; D64.9 Anemia, unspecified; E66.9 Obesity, unspecified
CPT/HCPCS: 36415; 36569; 36600; 71045; 74230; 80053; 80061; 82550; 82553; 82805; 82948; 83036; 83880; 84484; 85025; 87040; 93005; 93306; 97139; 99251; 99284; J0456; J0696; J1100; J1650; J1815; J1817; J2060; J7050; J7121; U0002

== ENCOUNTER 2020-09-04 09:12 | Emergency (ER) | payer MEDICARE ==
[~2020-09-04] VITALS: Ht 177.8 cm; Wt 127.0 kg
[~2020-09-04 09:12] MED LIST changes: +ASCORBIC ACID500 MG PO; +FLOMAX0.4 MG PO; +KEFLEX125 MG/5 M PO; +PREDNISONE20 MG PO; +RISPERDAL0.5 MG PO; +ROBITUSSIN COU118 M4 PO; +TESSALON PERLE100 MG PO; +ZINC SULFATE50 MG PO; +ZITHROMAX500 MG PO
[2020-09-04 09:40] LABS: BASOPHILS % 0.2 % (0.0-1.0); EOSINOPHILS # (AUTO) 0.4 (0.0-0.4); EOSINOPHILS % 3.9 % (0.0-6.0); HEMATOCRIT 43.6 % (38.2-49.6); HEMOGLOBIN 14.1 g/dL (14.0-18.0); LYMPHOCYTES # (AUTO) 1.3 (1.0-3.2); MEAN CORPUSCULAR HEMOGLOBIN 31.3 pg (28-32); MEAN CORPUSCULAR HGB CONC 32.3 g/dL (31-35); MEAN CORPUSCULAR VOLUME 96.7 fL (81-99); MONOCYTES # (AUTO) 0.7 (0.2-0.8); MONOCYTES % 7.1 % (4.4-11.3); NEUTROPHILS # (AUTO) 6.8 (2.1-6.9); NEUTROPHILS % 73.5 % (38.7-80.0); PLATELET COUNT 164 x10e3/uL (140-360); RED BLOOD COUNT 4.51 x10e6/uL (4.3-5.7)
[2020-09-04 11:35] LABS: ALANINE AMINOTRANSFERASE 66 IU/L (0-55); ALBUMIN 2.9 g/dL (3.5-5.0); ALBUMIN/GLOBULIN RATIO 0.9 (0.8-2.0); ALKALINE PHOSPHATASE 82 IU/L (40-150); ANION GAP 12.2 mmol/L (8-16); BLOOD UREA NITROGEN 14 mg/dL (7-26); BUN/CREATININE RATIO 13 (6-25); CALCIUM 8.2 mg/dL (8.4-10.2); CARBON DIOXIDE 30 mmol/L (22-29); CHLORIDE 105 mmol/L (98-107); CREATININE, SERUM 1.04 mg/dL (0.72-1.25); EST GLOMERULAR FILTRATION RATE > 60 ML/MIN (60-); GLUCOSE 92 mg/dL (74-118); POTASSIUM 4.2 mmol/L (3.5-5.1); SODIUM 143 mmol/L (136-145)
[2020-09-04 12:09] VITALS: BP 131/61
== END 2020-09-04 12:10 | disposition home or self-care (01) ==
LOC: ER 09:31
DX: S00.03XA Contusion of scalp, initial encounter (principal); R26.2 Difficulty in walking, not elsewhere classified; W18.30XA Fall on same level, unspecified, initial encounter; Y93.01 Activity, walking, marching and hiking; Y92.008 Other place in unspecified non-institutional (private) residence as the place of occurrence of the external cause; I10 Essential (primary) hypertension; E11.9 Type 2 diabetes mellitus without complications; E78.5 Hyperlipidemia, unspecified; I25.10 Atherosclerotic heart disease of native coronary artery without angina pectoris; F32.9 Major depressive disorder, single episode, unspecified; M54.9 Dorsalgia, unspecified; G89.29 Other chronic pain; Z96.651 Presence of right artificial knee joint
CPT/HCPCS: 36415; 70450; 71045; 72170; 80053; 82948; 83880; 84484; 85025; 93005; 99284

== ENCOUNTER → 2020-09-10 | Emergency (ER) | payer MEDICARE ==
[~2020-09-10] VITALS: Ht 182.9 cm; Wt 113.4 kg
[~2020-09-10] MED LIST changes: +DEXTROSE 5%/0.9% SOD CHL 1,000 ML IV SCH; +PIPERACILLIN/TAZOBAC 3.375 GM in SODIUM CHLORIDE 0.9% 50ML 50 ML IV SCH
[2020-09-10 10:07] LABS: BASOPHILS % 0.3 % (0.0-1.0); EOSINOPHILS # (AUTO) 0.2 (0.0-0.4); HEMATOCRIT 42.1 % (38.2-49.6); HEMOGLOBIN 13.3 g/dL (14.0-18.0); LYMPHOCYTES # (AUTO) 0.8 (1.0-3.2); LYMPHOCYTES % 10.3 % (18.0-39.1); MEAN CORPUSCULAR HEMOGLOBIN 30.2 pg (28-32); MEAN CORPUSCULAR HGB CONC 31.6 g/dL (31-35); MEAN CORPUSCULAR VOLUME 95.7 fL (81-99); MONOCYTES # (AUTO) 0.4 (0.2-0.8); MONOCYTES % 5.7 % (4.4-11.3); NEUTROPHILS % 80.8 % (38.7-80.0); PLATELET COUNT 203 x10e3/uL (140-360); RED CELL DISTRIBUTION WIDTH 13.2 % (11.7-14.4)
[2020-09-10 10:18] LABS: CLARITY,URINE CLEAR (CLEAR); COLOR,URINE YELLOW (YELLOW)
[2020-09-10 10:19] LABS: KETONES,URINE TRACE (NEGATIVE); LEUKOCYTE ESTERASE ,URINE TRACE (NEGATIVE); NITRITE,URINE NEGATIVE (NEGATIVE); PROTEIN,URINE DIPSTICK NEGATIVE (NEGATIVE); URINE UROBILINOGEN 0.2 mg/dL (0.2 - 1)
[2020-09-10 10:25] LABS: PROTHROMBIN TIME 13.8 seconds (11.9-14.5)
[2020-09-10 10:34] LABS: BACTERIA,URINE MODERATE /HPF; EPITHELIAL CELLS,URINE RARE /LPF; MUCUS,URINE RARE (RARE); RBC,URINE 0-5 /HPF (0-5); YEAST,URINE FEW
[2020-09-10 10:37] LABS: ALANINE AMINOTRANSFERASE 35 IU/L (0-55); ALBUMIN 2.9 g/dL (3.5-5.0); ALBUMIN/GLOBULIN RATIO 0.9 (0.8-2.0); ALKALINE PHOSPHATASE 86 IU/L (40-150); ANION GAP 12.3 mmol/L (8-16); BLOOD UREA NITROGEN 12 mg/dL (7-26); BUN/CREATININE RATIO 11 (6-25); CALCIUM 8.5 mg/dL (8.4-10.2); CARBON DIOXIDE 28 mmol/L (22-29); CHLORIDE 103 mmol/L (98-107); CREATINE KINASE 39 IU/L (30-200); CREATININE, SERUM 1.06 mg/dL (0.72-1.25); EST GLOMERULAR FILTRATION RATE > 60 ML/MIN (60-); GLUCOSE 179 mg/dL (74-118); POTASSIUM 4.3 mmol/L (3.5-5.1); SODIUM 139 mmol/L (136-145)
== END | disposition other institution (70) ==
LOC: ER 09:51
DX: S06.5X0A Traumatic subdural hemorrhage without loss of consciousness, initial encounter (principal); W08.XXXA Fall from other furniture, initial encounter; Y93.84 Activity, sleeping; Y92.008 Other place in unspecified non-institutional (private) residence as the place of occurrence of the external cause; R94.31 Abnormal electrocardiogram [ECG] [EKG]; E11.649 Type 2 diabetes mellitus with hypoglycemia without coma; T38.3X5A Adverse effect of insulin and oral hypoglycemic [antidiabetic] drugs, initial encounter; Z20.822 Contact with and (suspected) exposure to COVID-19
CPT/HCPCS: 36415; 70450; 71045; 72125; 72131; 72170; 80053; 81001; 82550; 82553; 82948; 83735; 83880; 84484; 85025; 85610; 85730; 87040; 87086; 93005; 99283; J2543; J7042; U0002